=== PATIENT | female | born 1970 | race Hispanic/Latino ===

== ENCOUNTER → 2017-01-27 | Outpatient (CLI) | payer SELFPAY | LOC: BICMAMMO 09:21 | PROVIDERS: ATTEND Family Medicine | DX: Z12.31 Encounter for screening mammogram for malignant neoplasm of breast (principal) | CPT/HCPCS: 77067; G0202 ==

== ENCOUNTER 2018-06-09 02:41 | Observation (INO) | payer SELFPAY ==
[2018-06-09 03:13] LABS: #Lymphocytes 2.2 thou/uL (1.20-3.40); #Monocytes 0.6 thou/uL (0.11-0.59); #Neutrophils 11.2 thou/uL (1.40-6.50); %Basophils 0.1 % (0.0-1.0); %Eosinophils 0.1 % (0.0-10.0); %Lymphocytes 15.8 % (21.0-51.0); %Monocytes 4.4 % (0.0-10.0); %Neutrophils 79.6 % (42.0-75.0); Hemoglobin 15.5 g/dL (12.0-16.0); Mean Corpuscular HGB CONC 34.2 g/dL (32.0-36.0); Mean Corpuscular Hemoglobin 30.1 pg (27.0-31.0); Mean Corpuscular Volume 88.1 fL (78.0-98.0); Mean Platelet Volume 7.6 fL (7.4-10.4); Platelet Count 358 thou/uL (130-400); RBC Distribution Width 11.3 % (11.5-14.5); Red Blood Cell (RBC) Count 5.14 mill/uL (4.20-5.40); White Blood Cell (WBC) Count 14.1 thou/uL (4.8-10.8)
[2018-06-09 03:31] LABS: BHCG - Serum Negative (NEGATIVE); Pregs Control Background? CLEAR/WHITE (CLR/WHITE); Pregs Control Bar Appear? YES (CONTROL BAR)
[2018-06-09 03:33] LABS: ALT (SGPT) 31 U/L (8-55); AST (SGOT) 22 U/L (5-34); Albumin 4.9 g/dL (3.5-5.0); Alkaline Phosphatase 92 U/L (40-150); Anion Gap 16 mmol/L (10-20); BUN (Urea Nitrogen) 9 mg/dL (7.0-18.7); Bilirubin, Total 0.5 mg/dL (0.2-1.2); Calc. Creatinine Clearance 0 mL/min (70-130); Calcium 10.3 mg/dL (7.8-10.44); Carbon Dioxide 25 mmol/L (22-29); Chloride 100 mmol/L (98-107); Estimated GFR-MDRD 89; Globulin 4.2 g/dL (2.4-3.5); Glucose 143 mg/dL (70-105); Lipase 17 U/L (8-78); Potassium 3.9 mmol/L (3.5-5.1); Protein, Total 9.1 g/dL (6.0-8.3); Sodium 137 mmol/L (136-145)
[2018-06-09] MEDS ORDERED: Ondansetron PF 4 MG/2 ML Vial ONE ×2 (03:55→13:36)
[2018-06-09] MEDS ORDERED: Morphine 4 MG/ML VIAL ONE ×2 (03:55→05:38)
[2018-06-09] MEDS ORDERED: Sodium Chloride 0.9% 100 ML ONE (04:45)
[2018-06-09] MEDS ORDERED: Piperacillin/Tazobactam 4.5 GM VIAL ONE (04:45)
[2018-06-09] MEDS ORDERED: Piperacillin/Tazobactam 4.5 GM in Sodium Chloride 0.9% 100 ML IVPB SCH (05:00)
[2018-06-09] MEDS ORDERED: Morphine 2 MG/ML SYRINGE SLOW IVP PRN (06:51)
[2018-06-09] MEDS ORDERED: Ondansetron PF 4 MG/2 ML Vial IVP PRN (06:51)
[2018-06-09] MEDS ORDERED: Ondansetron ODT 4 MG TAB PO PRN (06:52)
[2018-06-09] MEDS ORDERED: Sodium Chloride 0.9% 1,000 ML IV SCH ×2 (07:00→08:15)
--- NOTE | 2018-06-09 07:48 | ULT ---
PRELIMINARY REPORT: US Abdomen Limited, Right Upper Quadrant EXAM DATE/TIME: 06/09/2018 3:30 AM CLINICAL HISTORY: 47 years old, female; Pain and signs and symptoms; Nausea; Abdominal pain; Localized; Right upper quadrant (ruq) TECHNIQUE: Imaging protocol: Real-time ultrasound of the abdomen with image documentation. Examination was focused on the right upper quadrant. COMPARISON: No relevant prior studies available. FINDINGS: Liver: No acute findings. No mass. Gallbladder: Multiple gallstones with acoustic shadowing. Mild gallbladder wall thickening, edema/pericholecystic fluid. Positive Ontiveros's sign. Common bile duct: Measures 6.5mm in diameter. Pancreas: Visualized pancreas is unremarkable. Right kidney: No acute findings. No mass. No hydronephrosis. IMPRESSION: Cholelithiasis with gallbladder wall thickening, pericholecystic fluid and positive Ontiveros's sign concerning for acute cholecystitis. Thank you for allowing us to participate in the care of your patient. Dictated and Authenticated by: Yusuf Sosa MD 06/09/2018 4:05 AM Central Time ([place] & [place]) FINAL REPORT: US Gallbladder RUQ I agree with the preliminary report by Dr. Yusuf Sosa. Transcribed Date/Time: 06/09/2018 8:17 AM
[2018-06-09] MEDS ORDERED: Acetaminophen 1,000 MG in Premix Bag 1 BAG IVPB SCH ×2 (08:15→12:00)
[2018-06-09] MEDS ORDERED: Ketorolac Tromethamine 30 MG/ML VIAL IVP SCH ×2 (08:15→12:00)
--- NOTE | 2018-06-09 08:15 | HP ---
HISTORY OF PRESENT ILLNESS: Britta Noriega is a 47-year-old female, [place]ani-speaking only, who presents with acute cholecystitis and cholelithiasis. She was seen in the room this morning, hospitalized overnight without IV fluids orders, without antibiotics. The patient reports pain in the epigastrium, right upper quadrant, onset 4 days ago, presented to the emergency room yesterday with a 6.5 mm common bile duct. Normal liver function tests. Sonographic positive Ontiveros's sign with cholelithiasis. ALLERGIES: NONE. SOCIAL HISTORY: Tobacco none. Alcohol, none. PAST SURGICAL HISTORY: C-sections x2. PAST MEDICAL HISTORY: Hypertension and hypothyroidism. MEDICATIONS: Levothyroxine 75 mcg a day and lisinopril 10 mg a day. REVIEW OF SYSTEMS: Ten-point noncontributory. FAMILY HISTORY: Noncontributory. PHYSICAL EXAMINATION: VITAL SIGNS: Temperature 98.7, pulse 76, blood pressure 126/71. HEENT: Unremarkable. LUNGS: Clear to auscultation. CARDIAC: Regular rate and rhythm without murmur or gallop. ABDOMEN: Soft, tenderness in right upper quadrant and epigastrium. Mild guarding. EXTREMITIES: Unremarkable. ASSESSMENT AND PLAN: Cholecystitis and cholelithiasis. PLAN: Laparoscopic video cholecystectomy. Risks of infection, bleeding, visceral injury, open procedure discussed. She consents. Job ID: [id number]
[2018-06-09] MEDS ORDERED: Lisinopril 10 MG TAB PO SCH (09:00)
[2018-06-09] MEDS ORDERED: Scopolamine 1.5 mg/72 hour Patch TD SCH (09:00)
[2018-06-09] MEDS ORDERED: Bupivacaine HCl 0.5%/Epinephrine 1:200,000/PF 30 ml Vial ONE (12:40)
[2018-06-09] MEDS ORDERED: Ketorolac Tromethamine 30 MG/ML VIAL ONE (13:00)
[2018-06-09] MEDS ORDERED: Fentanyl 100 MCG/2 ML VIAL ONE (13:17)
[2018-06-09] MEDS ORDERED: diphenhydrAMINE 50 MG/ML VIAL ONE (13:36)
[2018-06-09] MEDS ORDERED: Lidocaine 1% PF 5 ML VIAL ONE (13:36)
[2018-06-09] MEDS ORDERED: Dexamethasone 20 MG/5 ML VIAL ONE (13:36)
[2018-06-09] MEDS ORDERED: Rocuronium Bromide 10 MG/ML (10ML VIAL) ONE (13:36)
[2018-06-09] MEDS ORDERED: Glycopyrrolate 0.2 MG/ML 5 ML SYRINGE ONE (13:36)
[2018-06-09] MEDS ORDERED: Metoclopramide HCl 10 MG/2 ML VIAL ONE (13:36)
[2018-06-09] MEDS ORDERED: PROPOFOL 200 MG/20 ML VIAL ONE (13:36)
[2018-06-09] MEDS ORDERED: Morphine Sulfate 2 MG/ML SYRINGE SLOW IVP PRN (14:45)
[2018-06-09] MEDS ORDERED: HYDROmorphone 2 MG/ML VIAL SLOW IVP PRN (14:45)
[2018-06-09] MEDS ORDERED: PACU-Morphine 4MG/ML VIAL SLOW IVP PRN (14:45)
[2018-06-09] MEDS ORDERED: Ondansetron HCl/PF 4 MG/2 ML Vial IVP PRN (14:45)
[2018-06-09] MEDS ORDERED: traMADol HCl 50 MG TAB PO PRN ×2 (14:47)
[2018-06-09] MEDS ORDERED: Acetaminophen 500 MG TAB PO PRN (14:47)
[2018-06-09] MEDS ORDERED: Ibuprofen 600 MG TAB PO PRN (14:47)
--- NOTE | 2018-06-09 15:34 | DIS ---
DATE OF ADMISSION: 06/09/2018 DATE OF DISCHARGE: 06/09/2018 DISCHARGE DIAGNOSES: Acute cholecystitis, cholelithiasis. PROCEDURES PERFORMED: Ultrasound of the gallbladder, laparoscopic cholecystectomy. HISTORY: A 47-year-old female, presented to the emergency room with acute abdominal pain, admitted for acute cholecystitis and received intravenous fluids and antibiotics in the next day or few hours later, taken to the operating room for laparoscopic cholecystectomy. Postoperatively, she tolerated her diet and discharged home with Tylenol, Motrin, Ultram p.r.n. pain. Ultram #22 refills given. Zofran given p.r.n. #5, one refill. Follow up in my office in 2 to 3 weeks. Diet and activity as tolerated. Job ID: [id number]
[2018-06-09 15:46] VITALS: BP 120/58; TEMP 97.7
--- NOTE | 2018-06-09 21:21 | OP ---
DATE OF PROCEDURE: 06/09/2018 PREOPERATIVE DIAGNOSES: Acute chronic cholecystitis, cholelithiasis. POSTOPERATIVE DIAGNOSES: Acute chronic cholecystitis, cholelithiasis. PROCEDURE PERFORMED: Laparoscopic video cholecystectomy. ANESTHESIA: General, local 0.5% Marcaine with epinephrine 30 mL. DESCRIPTION OF PROCEDURE: The patient was taken to the operating room. Under general anesthesia, abdomen was prepared with ChloraPrep and draped in routine fashion. Local anesthetic of 0.5% Marcaine with epinephrine was infiltrated in the skin and subcutaneous tissue about each port site, total volume used. Infraumbilical incision was made, pneumoperitoneum to 15 mmHg obtained with a Veress needle, replaced with a 5 port, video laparoscope inserted. Right subxiphoid incision was made and 11 port placed. Right subcostal incision was made, midclavicular and anterior axillary lines, a 5 port was placed. Liver distended and outlet obstructed with large gallstone. Fundus grasped, requiring decompression of fluid from the gallbladder to enable this, it was reflected cephalad. Infundibulum dissected free. Cystic artery and duct dissected free, critical view obtained. Cystic artery and duct double clipped proximally, divided. Gallbladder dissected free from liver bed obtaining good hemostasis prior to division of the final peritoneal attachments. Gallbladder and contents were placed in Endobag and required decompression of large stones prior to removal of the stones and gallbladder. It was submitted to Pathology. Good hemostasis ensured with clips, cautery. Subxiphoid fascia was approximated with 0 Vicryl UR needle. As good hemostasis ensured, irrigant and pneumoperitoneum evacuated. All instruments removed and all skin incisions were approximated with interrupted subdermal 4-0 Monocryl and [place] glue applied. Job ID: [id number]
[2018-06-10] MEDS ORDERED: Levothyroxine Sodium 75 MCG TAB PO SCH (06:00)
== END 2018-06-09 18:20 | disposition home or self-care (01) ==
LOC: ERS 02:41 → 3SE 06:32
PROVIDERS: ADMIT Specialist; ATTEND Specialist
PROC: 0FT44ZZ Resection of Gallbladder, Percutaneous Endoscopic Approach (ICD-10-PCS; principal; 2018-06-09)
DX: K80.12 Calculus of gallbladder with acute and chronic cholecystitis without obstruction (principal); I10 Essential (primary) hypertension; E03.9 Hypothyroidism, unspecified; Z79.899 Other long term (current) drug therapy
CPT/HCPCS: 36415; 76705; 80053; 83690; 84703; 85025; 88304; 96361; 96365; 96367; 96375; 96376; G0378; J0131; J0670; J1100; J1200; J1610; J1885; J1956; J2001; J2270; J2405; J2543; J2704; J2765; J3010; J3490